=== PATIENT | male | born 1995 | race Caucasian/White ===

== ENCOUNTER 2018-04-27 13:10 | Emergency (ER) | payer MEDICAID, OTHER ==
[2018-04-27] MEDS: morphine 4 MG/ML VIAL IV (13:37)
[2018-04-27] MEDS: PROPOFOL 200 MG INJ IV (14:55)
== END 2018-04-27 15:48 | disposition home or self-care (01) ==
LOC: E/R 15:48
DX: S53.104A Unspecified dislocation of right ulnohumeral joint, initial encounter (principal); X58.XXXA Exposure to other specified factors, initial encounter; Y92.9 Unspecified place or not applicable
CPT/HCPCS: 24600; 73060-RT; 73070; 73080-RT; 73090-RT; 99285-25